=== PATIENT | male | born 1950 | race Caucasian/White ===

== ENCOUNTER 2023-05-18 13:02 | Outpatient (OUT) | payer MEDICARE, SELFPAY | END 2023-05-18 13:03 | disposition home or self-care (01) | LOC: LAB 13:07 | PROVIDERS: PCP Family Medicine; Visit Provider Internal Medicine | DX: R30.0 Dysuria (principal); D72.829 Elevated white blood cell count, unspecified | CPT/HCPCS: 87086 ==

== ENCOUNTER 2023-06-05 12:15 | Outpatient (OUT) | payer MEDICARE, SELFPAY ==
[2023-06-05 12:41] LABS: Basophils Absolute Auto 0.1 10^3/uL (0.0-0.1); Basophils Percent Auto 0.5 % (0.2-2.0); Eosinophils Absolute Auto 0.3 10^3/uL (0.0-0.7); Eosinophils Percent Auto 2.6 % (0.9-7.0); Hematocrit 28.2 % (42.0-54.0); Hemoglobin 9.1 g/dL (14.0-18.0); Immature Granulocytes Abs Auto 0.11 10^3/uL (0.00-0.03); Immature Granulocytes Pct Auto 0.9 % (0.0-0.5); Lymphocytes Absolute Auto 0.5 10^3/uL (1.2-3.8); Lymphocytes Percent Auto 4.3 % (20.5-60.0); Mean Corpuscular HGB Conc 32.3 g/dL (29.9-35.2); Mean Corpuscular Hemoglobin 30.5 pg (25.9-34.0); Mean Corpuscular Volume 94.6 fL (80.0-94.0); Mean Platelet Volume 9.2 fL (9.5-13.5); Monocytes Absolute Auto 0.8 10^3/uL (0.3-0.8); Monocytes Percent Auto 6.5 % (1.7-12.0); Neutrophils Absolute Auto 10.4 10^3/uL (1.4-6.5); Neutrophils Percent Auto 85.2 % (43.0-75.0); Platelet Count 307 10^3/uL (150-450); Red Blood Count 2.98 10^6/uL (4.70-6.10); Red Cell Distribution Width 12.6 % (11.0-15.0); White Blood Count 12.2 10^3/uL (4.0-11.0)
[2023-06-05 12:44] LABS: Estimated Average Glucose 120 mg/dL; Glycohemoglobin A1C 5.8 % (4.5-6.2)
[2023-06-05 12:56] LABS: Magnesium 2.3 mg/dL (1.8-2.4); Thyroid Stimulating Hormone 5.637 uIU/mL (0.358-3.740); Uric Acid 6.6 mg/dL (3.5-7.2)
[2023-06-05 13:35] LABS: Free T4 1.36 ng/dL (0.76-1.46)
== END 2023-06-05 12:16 | disposition home or self-care (01) ==
LOC: LAB 12:17
PROVIDERS: PCP Family Medicine; Visit Provider Family Medicine
DX: E03.9 Hypothyroidism, unspecified (principal); M13.10 Monoarthritis, not elsewhere classified, unspecified site; L03.116 Cellulitis of left lower limb; R25.2 Cramp and spasm; E11.9 Type 2 diabetes mellitus without complications
CPT/HCPCS: 36415; 83036; 83735; 84439; 84443; 84550; 85025